=== PATIENT | female | born 1980 | race Caucasian/White ===

== ENCOUNTER 2019-10-31 09:13 | Emergency (ER) | payer BC, SELFPAY ==
--- NOTE | 2019-10-31 09:10 | ECG_ITS ---
Measurements Intervals [place] Rate: 97 P: 50 IL: 169 QRS: 11 QRSD: 84 T: 16 QT: 332 QTc: 423 Interpretive Statements SINUS RHYTHM POSSIBLE LEFT ATRIAL ENLARGEMENT BORDERLINE T WAVE ABNORMALITY- INFERIOR LEADS BASELINE ARTIFACT- AVF, V5 BORDERLINE ECG Electronically Signed On 10-31-2019 12:49:41 CDT by Billy Leon D.O.
[2019-10-31 09:11] VITALS: BP 151/103; PULSE 111; RESP 17; TEMP 37; O2SAT 98
[2019-10-31 09:23] VITALS: PULSE 101
[2019-10-31] MEDS: TETANUS,DIPHTHERIA,AC PERTUSSIS ADULT (0.5 ML) BOOSTRIX IM (09:34)
[2019-10-31 09:37] LABS: Basophils Absolute Auto 0.1 K/mm3 (0.0-0.1); Basophils Percent Auto 0.5 % (0.2-1.2); Eosinophils Absolute Auto 0.1 K/mm3 (0-0.3); Eosinophils Percent Auto 0.4 % (0-4.4); Hematocrit 49.5 % (37.0-47.0); Hemoglobin 16.6 g/dL (12.0-15.0); Immature Granulocyte Absolute 0.07 K/mm3 (0.00-0.031); Immature Granulocyte Percent A 0.4 % (0-0.5); Lymphocytes Absolute Auto 1.68 K/mm3 (0.9-3.2); Mean Corpuscular HGB Conc 33.5 g/dl (32-36); Mean Corpuscular Hemoglobin 29.4 pg (26-34); Mean Corpuscular Volume 87.6 fl (80-100); Mean Platelet Volume 9.9 fl (7.4-10.4); Monocytes Absolute Auto 1.2 K/mm3 (0.1-0.6); Monocytes Percent Auto 6.2 % (2.6-8.5); Neutrophils Absolute Auto 15.6 K/mm3 (1.3-6.7); Neutrophils Percent Auto 83.5 % (45.5-73.1); Platelet Count Result 363 k/mm3 (150-375); Red Blood Count 5.65 M/mm3 (4.2-5.4); Red Cell Distribution Width 13.3 % (11.5-14.5); White Blood Count 18.7 K/mm3 (4.5-10.0)
[2019-10-31] MEDS: levETIRAcetam 1000MG/NACL100ML 1,000 MG/100 ML BAG 400 MG IVPB (09:43)
[2019-10-31 09:50] LABS: Albumin Level 4.5 g/dL (3.5-5.1); Alkaline Phosphatase 97 U/L (38-126); Aspartate Amino Transferase 41 U/L (14-36); Bilirubin,Total 0.4 mg/dL (0.2-1.3); Blood Urea Nitrogen 7 mg/dL (7-17); Calcium 8.7 mg/dL (8.4-10.2); Carbon Dioxide 20 mmol/L (22-30); Chloride 105 mmol/L (98-107); Estimated CRCL calculation 120 ml/min; Estimated Glomerular Filt Rate > 60; Glucose 140 mg/dL (65-105); Potassium 3.9 mmol/L (3.4-5.0); Sodium 136 mmol/L (137-145)
[2019-10-31 09:59] LABS: Alanine Aminotransferase 31 U/L (4-35)
--- NOTE | 2019-10-31 10:04 | ED.SEIZURE ---
HPI - Seizure General Chief Complaint: Seizure Stated Complaint: SEIZURE History of Present Illness HPI Narrative: Patient is a 39-year-old female who presents ER status post seizure. Patient has history of seizures to the times in her life. She is prescribed Keppra but does not take it. No fevers or chills or sweats. She was in the bathroom when she had her seizure. She was postictal but is now awake alert and oriented x3. No chest pain/shortness of breath/nausea/vomiting. Reports she has not been staying up all night, drinking alcohol, or using illicit substances. Related Data Home Medications Medication Instructions Recorded Confirmed levetiracetam [Keppra] 250 mg PO BID 10/31/19 Allergies Allergy/AdvReac Type Severity Reaction Status Date / Time No Known Allergies Allergy Verified 10/31/19 09:27 Review of Systems Review of Systems: All systems reviewed & are unremarkable except as noted in HPI and below Constitutional: Constitutional: Denies chills, Denies fever(s) and Denies weakness ENT: Denies nasal congestion and Denies sore throat Musculoskeletal: Musculoskeletal: Denies back pain and Denies muscle cramps Integumentary/Breasts: Comments: Laceration to right forehead Neurologic: Denies dizziness, Denies focal weakness and Denies numbness Comments: Seizure PMFSH Past Medical History Medical History (Updated 10/31/19 @ 10:48 by Joel Yun MD) Seizure disorder Surgical History Surgical History (Updated 10/31/19 @ 10:06 by Joel Yun MD) No pertinent past surgical history Social History Social History (Updated 10/31/19 @ 10:06 by Joel Yun MD) Substance use: never Gender identity (if verbalized by the patient): Female Exam Narrative: Exam Narrative: GENERAL: Well-appearing, well-nourished, and in no acute distress. HEAD: Normocephalic, vertical laceration right forehead with underlying soft tissue swelling, superficial and well approximated 2.5 cm in length. EYES: PERRL and EOMI. ENT: Mucous membranes moist. Bite injury to right tongue posterior aspect. NECK: Supple. FROM. CHEST: Clear to auscultation. No respiratory distress. HEART: Regular rate and rhythm. Normal peripheral pulses. EXTREMITIES: Normal range of motion. No edema. NEURO: No focal deficits. Alert and oriented x3. Course Vital Signs Vital signs: Vital Signs Temperature 98.6 F 10/31/19 09:11 Pulse Rate 111 H 10/31/19 09:11 Respiratory Rate 17 10/31/19 09:11 Blood Pressure 151/103 H 10/31/19 09:11 Pulse Oximetry 98 10/31/19 09:11 Temperature 98.6 F 10/31/19 09:11 Pulse Rate 76 10/31/19 10:58 Respiratory Rate 18 10/31/19 10:58 Blood Pressure 140/87 10/31/19 10:58 Pulse Oximetry 97 10/31/19 10:58 Procedures Laceration Laceration 1: Date: 10/31/19 Time: : Site: face Side (If applicable): right Size (cm): 2.5 Description: linear Depth: simple, single layer Local Anesthetic: none Pre-repair: irrigated ====== Skin Level ====== Skin layer closed with: steri strips ====== Subcutaneous Layer ====== ====== Muscle Layer ====== ====== Tendon Layer ====== MDM - Seizure Lab Data Result diagrams: 10/31/19 09:28 10/31/19 09:28 Labs: Lab Results 10/31/19 10/31/19 Range/Units 09:28 09:28 WBC 18.7 H (4.5-10.0) K/mm3 RBC 5.65 H (4.2-5.4) M/mm3 Hgb 16.6 H (12.0-15.0) g/dL Hct 49.5 H (37.0-47.0) % MCV 87.6 (80-100) fl MCH 29.4 (26-34) pg MCHC 33.5 (32-36) g/dl RDW 13.3 (11.5-14.5) % Plt Count 363 (150-375) k/mm3 MPV 9.9 (7.4-10.4) fl Immature Gran % (Auto) 0.4 (0-0.5) % Neut % (Auto) 83.5 H (45.5-73.1) % Lymph % (Auto) 9.0 L (18.3-44.2) % [place] % (Auto) 6.2 (2.6-8.5) % Eos % (Auto) 0.4 (0-4.4) % Baso % (Auto) 0.5 (0.2-1.2) % Lymph # (Auto) 1.68 (0.9-3.2)
[2019-10-31] MEDS: SODIUM CHLORIDE 0.9% IV 1,000 ML 999 ML IV CONT (10:42)
[2019-10-31 10:58] VITALS: BP 140/87; PULSE 76; RESP 18; O2SAT 97
[2019-10-31 11:56] VITALS: BP 130/76; PULSE 80; RESP 17; O2SAT 100
== END 2019-10-31 11:57 | disposition home or self-care (01) ==
PROVIDERS: Emergency Provider Emergency Medicine
DX: G40.909 Epilepsy, unspecified, not intractable, without status epilepticus (principal); S01.81XA Laceration without foreign body of other part of head, initial encounter; E86.0 Dehydration; Z23 Encounter for immunization; R94.31 Abnormal electrocardiogram [ECG] [EKG]; W18.39XA Other fall on same level, initial encounter
CPT/HCPCS: 36415; 80053; 85025; 90471; 90715; 93005; 96361; 96365; 99284; J1953; J7030

== ENCOUNTER 2019-12-09 13:52 | Emergency (ER) | payer BC, SELFPAY ==
[2019-12-09 13:55] VITALS: BP 192/111; PULSE 128; RESP 18; TEMP 36.7; O2SAT 99
== END 2019-12-09 14:20 | disposition left against medical advice (07) ==
LOC: ANHED 14:19
PROVIDERS: Emergency Provider Emergency Medicine
DX: R56.9 Unspecified convulsions (principal)
CPT/HCPCS: 99199

== ENCOUNTER → 2020-02-07 08:06 | Outpatient (CLI) | payer BC, SELFPAY ==
--- NOTE | ~2020-02-07 | US_ITS ---
EXAMINATION: US transvaginal DATE: 02/07/2020 08:31 INDICATION: Menorrhagia. TECHNIQUE: Multiple transvaginal sonographic images of the pelvis were obtained. COMPARISON: None. FINDINGS: The uterus measures 8.8 x 3.5 x 5.3 cm. There is no free fluid in the pelvis. The endometrial complex measures 11 mm in thickness. The right ovary measures 2.5 x 1.4 x 1.3 cm. The left ovary measures 2. 4 x 2.3 x 2.2 cm. IMPRESSION: 1. Normal pelvis. Reviewed, dictated and finalized at location A. IMPRESSION: 1. Normal pelvis.
== END ==
PROVIDERS: Visit Provider Nurse Practitioner
DX: N92.0 Excessive and frequent menstruation with regular cycle (principal)
CPT/HCPCS: 76830